=== PATIENT | female | born 2000 | race Caucasian/White ===

== ENCOUNTER 2021-01-06 15:23 | Emergency (ER) | payer BC, OTHER, SELFPAY ==
[2021-01-06 15:35] VITALS: BP 130/75; PULSE 103; RESP 16; TEMP 36.6; O2SAT 100
--- NOTE | 2021-01-06 15:41 | ED.SKABFB ---
HPI - Skin/Abscess/Foreign Bdy General Chief complaint: Skin/Abscess/Foreign Body Stated complaint: INFECTED TATTOO/RASH Source: patient Mode of arrival: ambulatory Limitations: no limitations History of Present Illness HPI narrative: Patient is a 20-year-old female who presents complaining of rash. Patient reports she has a history of eczema, reports generalized pruritic rash x1 week. She denies using new soaps, or shampoos. She does report using a new deodorant and rash started after. She also has area of concern at right forearm where she has recent tattoo. Reports redness, warmth and tenderness with palpation. She denies using any [id number] medications for relief at this time. Patient has no significant medical history. MD complaint: rash Related Data Home Medications Medication Instructions Recorded Confirmed cariprazine 4.5 mg capsule 4.5 mg PO DAILY 05/21/20 drospirenone 3 mg-ethinyl 1 tablet PO DAILY 05/21/20 estradiol 0.02 mg tablet metformin 1,000 mg tablet 1,000 mg PO DAILY 05/21/20 Allergies Allergy/AdvReac Type Severity Reaction Status Date / Time chicken derived Allergy Mild Unknown Verified 05/21/20 12:02 tree nut Allergy Mild Unknown Verified 05/21/20 12:02 No Known Drug Allergies Allergy Unknown Unknown Verified 05/21/20 12:02 Review of Systems Review of Systems: Narrative: CONSTITUTIONAL: Denies fever, chills, or sweats. EYES: Denies visual changes, redness, or discharge. ENT: Denies rhinorrhea, congestion, sore throat, or otalgia. CARDIOVASCULAR: Denies chest pain, palpitations, or edema. RESPIRATORY: Denies cough or dyspnea. GASTROINTESTINAL: Denies abdominal pain, nausea, vomiting, or diarrhea. GENITOURINARY: Denies dysuria or hematuria. SKIN: Generalized rash and area of warmth and tenderness to right forearm MUSCULOSKELETAL: Denies back pain, joint pain, or myalgia. NEUROLOGIC: Denies headache, numbness, dizziness, or weakness. PSYCHIATRIC: Denies anxiety or depression. [facility] Past Medical History Medical History (Updated 01/06/21 @ 15:47 by RAMESH Verde) Anxiety Bipolar 1 disorder Depression PCOS (polycystic ovarian syndrome) Surgical History Surgical History H/O eye surgery [place] teeth extracted Family History Family History Grandparent Hypertension Cerebrovascular accident Social History Social History (Updated 01/06/21 @ 15:43 by RAMESH Verde) Smoking status: Never smoker Alcohol intake: never Substance use: never Comments At the time of signature, I have reviewed and agree with nursing past medical, surgical, social, and family history unless otherwise noted. Please see nursing chart for further information. There is no relevant family history pertinent to the presenting complaint. Exam Narrative: Exam Narrative: GENERAL: Well-appearing, well-nourished, and in no acute distress. HEAD: Normocephalic, atraumatic. EYES: EOMI. No redness or drainage. Conjunctiva are normal. ENT: Mucous membranes pink and moist. CHEST: No respiratory distress. HEART: Regular rate and rhythm. EXTREMITIES: Normal range of motion. No edema. SKIN: Generalized macular rash to torso and bilateral upper extremities, no discharge. Approximate 5 x 4 cm area of erythema and warmth around newly placed tattoo. Mild tenderness with palpation NEURO: No focal deficits. Alert and oriented x3. Gait steady. PSYCH: Normal affect. No signs of depression or anxiety. Course Vital Signs Vital signs: Vital Signs Temperature 36.6 C 01/06/21 15:35 Pulse Rate 103 H 01/06/21 15:35 Respiratory Rate 16 01/06/21 15:35 Blood Pressure 130/75 01/06/21 15:35 Pulse Oximetry 100 01/06/21 15:35 Temperature 36.6 C 01/06/21 15:35 Pulse Rate 103 H 01/06/21 15:35 Respiratory Rate 16 01/06/21 15:35 Blood Pressure 130/75 01/06/21 15:35
== END 2021-01-06 15:55 | disposition home or self-care (01) ==
PROVIDERS: Emergency Provider Nurse Practitioner; PCP Physician Assistant
DX: L25.0 Unspecified contact dermatitis due to cosmetics (principal); L03.113 Cellulitis of right upper limb; L30.9 Dermatitis, unspecified; E28.2 Polycystic ovarian syndrome
CPT/HCPCS: 99213; G0463

== ENCOUNTER 2021-02-02 11:23 | Emergency (ER) | payer OTHER, BC, SELFPAY ==
[2021-02-02 11:52] VITALS: BP 95/74; PULSE 83; RESP 18; TEMP 36.7; O2SAT 100
--- NOTE | 2021-02-02 13:06 | ED.GENADULT ---
HPI - General Adult General Chief complaint: Nausea/Vomiting/Diarrhea Stated complaint: abd pain Time Seen by Provider: 02/02/21 12:54 Source: patient and RN notes reviewed Mode of arrival: ambulatory Limitations: no limitations History of Present Illness HPI narrative: Patient presents today complaining of nausea, vomiting, diarrhea since yesterday afternoon. Vomited 4 times yesterday and twice today, last today 30 this morning. 5 episodes of diarrhea yesterday and one today. Denies blood or mucus. Patient has not tried to drink anything since last vomiting. Denies any abdominal pain or fever. Patient did have white [place] yesterday. She has tried no [id number] treatment prior to arrival. 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 MD complaint: Nausea, vomiting, diarrhea Related Data Home Medications Medication Instructions Recorded Confirmed cariprazine 4.5 mg capsule 4.5 mg PO DAILY 05/21/20 02/02/21 metformin 1,000 mg tablet 1,000 mg PO DAILY 05/21/20 02/02/21 escitalopram oxalate 10 mg PO DAILY 02/02/21 02/02/21 Allergies Allergy/AdvReac Type Severity Reaction Status Date / Time chicken derived Allergy Mild Unknown Verified 02/02/21 12:33 tree nut Allergy Mild Unknown Verified 02/02/21 12:33 No Known Drug Allergies Allergy Unknown Unknown Verified 02/02/21 12:33 Review of Systems Review of Systems: Narrative: CONSTITUTIONAL: Denies body aches, fever, chills, or sweats. EYES: Denies visual changes, redness, or discharge. ENT: Denies rhinorrhea, congestion, sore throat, or otalgia. CARDIOVASCULAR: Denies chest pain, palpitations, or edema. RESPIRATORY: Denies cough or dyspnea. GASTROINTESTINAL: Denies abdominal pain. + Nausea, vomiting, diarrhea GENITOURINARY: Denies dysuria or hematuria. SKIN: Denies rash, itching, or wounds. MUSCULOSKELETAL: Denies back pain, joint pain, or myalgia. NEUROLOGIC: Denies headache, numbness, tingling, or weakness. PSYCH: Denies depression or anxiety. [facility] Past Medical History Medical History (Updated 02/02/21 @ 13:11 by Anisa Soler, [employer], [employer]) Anxiety Bipolar 1 disorder Depression PCOS (polycystic ovarian syndrome) Surgical History Surgical History H/O eye surgery [place] teeth extracted Family History Family History Grandparent Hypertension Cerebrovascular accident Social History Social History (Updated 01/06/21 @ 15:43 by RAMESH Verde) Smoking status: Never smoker Alcohol intake: never Substance use: never Comments At time of signature, I have reviewed and agree with nursing past medical, surgical, social and family history unless otherwise noted. Please see nursing chart for further information. There is no relevant family history pertinent to the presenting complaint Exam Narrative: Exam Narrative: GENERAL: Well-appearing, well-nourished, and in no acute distress. HEAD: Normocephalic, atraumatic. EYES: EOMI. No redness or drainage. Conjunctivae normal. ENT: Mucous membranes pink and moist. NECK: Normal AROM. Supple. No lymphadenopathy. CHEST: No respiratory distress. Clear to auscultation. HEART: Regular rate and rhythm. No murmur appreciated. Normal peripheral pulses. ABDOMEN: Soft, nontender, nondistended, normal active bowel sounds. MUSCULOSKELETAL: No bony tenderness. EXTREMITIES: Normal range of motion. No edema. SKIN: Warm, dry, no rash. Capillary refill normal. Normal skin turgor. NEURO: No focal deficits. Alert and oriented x3. Gait steady. PSYCH: Normal affect. No signs of depression or anxiety. Course Vital Signs Vital signs: Vital Signs Temperature 98.0 F 02/02/21 11:52 Pulse Rate 83 02/02/21 11:52 Respiratory Rate 18 02/02/21 11:52 Blood Pressure 95/74 L 02/02/21 11:52 Pulse Oximetry 100 02/02/21 11:52 Temperat
== END 2021-02-02 13:15 | disposition home or self-care (01) ==
PROVIDERS: Emergency Provider Nurse Practitioner; PCP Physician Assistant
DX: R11.2 Nausea with vomiting, unspecified (principal); R19.7 Diarrhea, unspecified; E28.2 Polycystic ovarian syndrome; F41.9 Anxiety disorder, unspecified; F32.9 Major depressive disorder, single episode, unspecified
CPT/HCPCS: 99213; G0463